=== PATIENT | female | born 1950 | race Caucasian/White ===

== ENCOUNTER 2024-10-14 20:36 | Observation (INO) ==
[2024-10-14 21:02] LABS: MEAN PLATELET VOLUME 7.6 fL (7.4-11.0); RED CELL DISTRIBUTION WIDTH 13.8 % (11.6-16.5)
[2024-10-14 21:10] LABS: INR 1.01 (0.8-1.3)
[2024-10-14 21:11] VITALS: BMI 19.8
[2024-10-14 21:16] LABS: CREATININE 0.76 mg/dL (0.55-1.02); eGFR NON BLACK RACES > 60 (>60)
--- NOTE | 2024-10-14 21:17 | EKG ---
Test Reason : cp Blood Pressure : */* mmHG Vent. Rate : 70 BPM Atrial Rate : 70 BPM P-R Int : 178 ms QRS Dur : 86 ms QT Int : 424 ms P-R-T Axes : 62 24 25 degrees QTc Int : 457 ms Normal sinus rhythm Possible Left atrial enlargement Borderline ECG When compared with ECG of 17-MAY-2024 19:23, No significant change was found Confirmed by Leonard Becker MD ([id number]) on 10/15/2024 7:19:49 AM Referred By: Confirmed By: Leonard Becker MD
--- NOTE | 2024-10-14 23:37 | DR.CP ---
HPI Time Seen Time Seen by Provider: 10/14/24 21:21 PCP Primary Care Physician: Dr. Watkins HPI Comment HPI Comment: Patient with extensive history of coronary artery disease including multiple stents and coronary bypass. Patient states she has had chest pains on and off for the last few months and has been following with her raw sampler. Patient states she had recent echo and due to ongoing concerns from the raw sampler they plan on doing a cath on the of this month. Patient states today she started having chest pain around 6:30 PM and she took her nitro at home which only resolved the pain for short period of time. Patient had aspirin and nitro in EMS transport and on arrival chest pain and shortness of breath have resolved. Complaint Chief Complaint:: Patient brought in er via [facility] with complaints of chest pain that started around 6:30 tonight, elevated bp, sob, and right arm pain. Pt states she took Nitro 0.4mg at home and symptoms was relieved. PT stated she called ems and pain resumed in route to our facility. pt was given 0.4mg nitro and ASA 325 by ems. Upon arrival to er pt denies chest pain or sob. Self Treatment fo Chief Complaint: Nitro 0.4mg po x2, ASA 324mg po, labetalol 20mg COVID-19 Coronavirus risk:travel/contact w/high risk person: No Has patient experienced Coronavirus symptoms: No Source History Provided: Patient Mode of Arrival Mode of Arrival: EMS Timing Onset of Chief Complaint: 10/14/24 PMH PMH Past Medical History: Yes Past Medical History: Anxiety, Coronary Artery Disease, Dyslipidemia, Hypertension and MD Past Medical History Comment: MD x4, CAD, Past Surgical History: Yes Surgical History: Appendectomy, CABG/Valve Surgery and Hysterectomy Past Surgical History Comment: CABG, Cardiac stents x4, Parathyroidectomy, Carotid endererectomy Family History History of Family Medical Conditions: Yes Family Medical History: Cancer Social History Does patient currently use any type of tobacco product: No Have you used tobacco products in the last 12 months: No Type of Tobacco Use: None Does any household member use tobacco: No Alcohol Use: None Do you use any recreational Drugs:: No Lives With: Family Lives Where: Home Travel Risk Coronavirus risk:travel/contact w/high risk person: No Has patient experienced Coronavirus symptoms: No Infectious screening Have you traveled outside the country in the last 6 months?: No Isolation: Standard ROS Review of Systems Constitutional: No Symptoms Reported Eyes: No Symptoms Reported ENTM: No Symptoms Reported Respiratoy: No Symptoms Reported Cardiovascular: See HPI and Chest Pain; negative Edema, Palpitations or Syncope Gastrointestinal/Abdominal: No Symptoms Reported Genitourinary: No Symptoms Reported Neurological: No Symptoms Reported Musculoskeletal: No Symptoms Reported Integumentary: No Symptoms Reported Hematologic/Lymphatic: No Symptoms Reported Endocrine: No Symptoms Reported Psychiatric: No Symptoms Reported All Other Systems: Reviewed and Negative PE Vitals Vitals: Vital Signs Temperature 98.0 F Pulse Rate 64 Pulse Rate 66 Pulse Rate 66 Pulse Rate 66 Pulse Rate 67 Pulse Rate 64 Pulse Rate 68 Pulse Rate 71 Pulse Rate 68 Pulse Rate 69 Pulse Rate 68 Pulse Rate 69 Pulse Rate 72 Respiratory Rate 14 Respiratory Rate 19 Respiratory Rate 14 Respiratory Rate 22 Respiratory Rate 24 Respiratory Rate 12 Respiratory Rate 15 Respiratory Rate 20 Respiratory Rate 15 Respiratory Rate 12 Respiratory Rate 24 Respiratory Rate 21 Respiratory Rate 20 Blood Pressure 158/69 Blood Pressure 166/70 Blood Pressure 177/72 Blood Pressure 170/73 Blood Pressure 189/83 Blood Pressure 189/83 Blood Pressure 189/83 O2 Sat by Pulse Oximetry 98 O2 Sat by Pulse Oximetry 98 O2 Sat by Pulse Oximetry 99 O2 Sat by Pulse Oximetry 99 O2 Sat by Pulse Oximetry 100 O2 Sat by Pulse Oximetry 98 O2 Sat by Pulse Oximetry 100 O2 Sat by Pulse Oximetry 99 O2 Sat by Pulse Oximetry 99 O2 Sat by Pulse Oximetry 99 O2 Sat by Pulse Oximetry 98 O2 Sat by Pulse Oximetry 98 O2 Sat by Pulse Oximetry 99 General Limitations: No Limitations General Appearance: Alert and In No Apparent Distress Head Head Exam: Normal Inspection Eyes Eye exam: Normal Appearance ENT ENT Exam: Normal Exam Chest Chest Inspection: Normal Inspection Respiratory Respiratory Exam: Normal Lung Sounds Bilat Cardiovascular Cardiovascular Exam: Tachycardia and Irregular Rhythm Pulse: Normal Edema: Normal Abdominal Exam Abdominal Exam: Normal Inspection, Normal Bowel Sounds and Soft Extremities Extremities Exam: Normal Inspection Back Back Exam: Normal Inspection Neurologic Neurological Exam: Alert and Oriented X3 Psychiatric Psychiatric Exam: Normal Affect and Normal Mood Skin Skin Exam: Warm, Dry, Intact and Normal Color COURSE Treatment Treatment: Discussed results of workup with patient. Pain is resolved. Consultation Called: 23:38 Consultation Comments: Discussed case with Dr. Rollins and he is agreeable to admission [facility]OR Labs Reviewed Laboratory Results Reviewed?: Yes 10/14/24 20:55 10/14/24 20:55 Laboratory: WBC 10.0 X10^3/uL (3.6-10.0) 10/14/24 20:55 RBC 4.17 X10^6/uL (3.5-5.4) 10/14/24 20:55 Hgb 12.6 g/dL (12.0-16.0) 10/14/24 20:55 Hct 37.6 % (36.0-47.0) 10/14/24 20:55 MCV 90.1 fL (80.0-100.0) 10/14/24 20:55 MCH 30.3 pg (27.0-34.0) 10/14/24 20:55 MCHC 33.6 g/dL (33.0-35.0) 10/14/24 20:55 RDW 13.8 % (11.6-16.5) 10/14/24 20:55 Plt Count 296 X10^3/uL (150.0-450.0) 10/14/24 20:55 MPV 7.6 fL (7.4-11.0) 10/14/24 20:55 Neut % (Auto) 61.2 % (42.0-75.0) 10/14/24 20:55 Lymph % (Auto) 24.7 % (21.0-51.0) 10/14/24 20:55 Petroleum % (Auto) 10.5 % (0.0-13.0) 10/14/24 20:55 Eos % (Auto) 3.3 % (0.9-2.9) H 10/14/24 20:55 Baso % (Auto) 0.3 % (0.2-1.0) 10/14/24 20:55 Neut # (Auto) 6.1 x10^3/uL (2.2-4.8) H 10/14/24 20:55 Lymph # (Auto) 2.5 X10^3/uL (1.3-2.9) 10/14/24 20:55 Petroleum # (Auto) 1.1 x10^3/uL (0.3-0.8) H 10/14/24 20:55 Eos # (Auto) 0.3 x10^3/uL (0.0-0.2) H 10/14/24 20:55 Baso # (Auto) 0.0 X10^3/uL (0.0-0.1) 10/14/24 20:55 Absolute Nucleated RBC 0.1 /100WBC 10/14/24 20:55 PT 13.4 SECONDS (11.8-14.3) 10/14/24 20:55 INR Target Range - 10/14/24 20:55 INR 1.01 (0.8-1.3) 10/14/24 20:55 APTT 27.8 SECONDS (22.9-36.5) 10/14/24 20:55 PTT Comment - 10/14/24 20:55 Sodium 145 mmol/L (136-145) 10/14/24 20:55 Corrected Sodium TNP 10/14/24 20:55 Potassium 3.3 mmol/L (3.5-5.1) L 10/14/24 20:55 Chloride 107 mmol/L (98-107) 10/14/24 20:55 Carbon Dioxide 29.0 mmol/L (21-32) 10/14/24 20:55 BUN 10 mg/dL (7-18) 10/14/24 20:55 Creatinine 0.76 mg/dL (0.55-1.02) 10/14/24 20:55 Est GFR (MDRD) Af Amer > 60 (>60) 10/14/24 20:55 Est GFR (MDRD) Non-Af > 60 (>60) 10/14/24 20:55 Glucose 104 mg/dL (65-99) H 10/14/24 20:55 Calcium 9.4 mg/dL (8.5-10.1) 10/14/24 20:55 Corrected Calcium TNP 10/14/24 20:55 Total Bilirubin 0.30 mg/dL (0.2-1.0) 10/14/24 20:55 AST 16 Units/L (15-37) 10/14/24 20:55 ALT 16 Units/L (12-78) 10/14/24 20:55 Alkaline Phosphatase 100 Units/L (46-116) 10/14/24 20:55 Creatine Kinase 52 Units/L (26-192) 10/14/24 20:55 Troponin I High Sens 11.5 ng/L (4.0-60.0) 10/14/24 23:07 Total Protein 7.3 g/dL (6.4-8.2) 10/14/24 20:55 Albumin 3.9 g/dL (3.4-5.0) 10/14/24 20:55 Globulin 3.4 g/dL (2.5-4.5) 10/14/24 20:55 Albumin/Globulin Ratio 1.1 Ratio (1.1-2.1) 10/14/24 20:55 XRAY XRAY Interpreted by: Self (Chest x-ray reviewed and interpreted by myself. No acute cardiopulmonary findings noted.) Opioid Opioid Risk Tool Age (Osmany box if 16-45): No History of Preadolescent Sexual Abuse: No Total: 0 Total Score Risk Category: Low Risk Copyright: Cast PATI predicting aberrant behaviors Discharge Plan Diagnosis Discharge Problem: Chest pain, Coronary artery disease Discharge Plan Patient Disposition: ADMITTED INPATIENT Condition: Stable Prescriptions: No Action carvedilol 6.25 mg tablet 6.25 mg PO BID isosorbide mononitrate 30 mg tablet extended release 24 hr 30 mg PO QDAY ranolazine 1,000 mg tablet extended release 12 hr 1,000 mg PO BID ticagrelor [Brilinta] 90 mg tablet 90 mg PO BID clonidine HCl 0.1 mg tablet 0.1 mg PO QDAY PRN losartan 25 mg tablet 12.5 mg PO QDAY aspirin 81 mg Tablet,Chewable 81 mg PO DAILY atorvastatin 20 mg Tablet 20 mg PO HS Health Concerns: Post Hospitalization: new medications and changes needed to prevent readmission or further decline. Pt educated and given instructions on all concerns. Plan of Treatment: Continue with present treatment and follow up plan. Pt is to keep follow up appointment as instructed and take medications as ordered. Orders to Discharge Patient Discharge Orders: Transfer (Routine); Ordered 10/14/24 Ordered By: Monty Keenan Follow ups/Referrals Follow ups/Referrals: [facility],None [Primary Care Provider] - 3 days Instructions Stand Alone Forms: Find Help Web Site, Post Hospital Follow Up Care Print Language: MALAYSIAN
[2024-10-15] MEDS: CATAPRES TAB 0.1 MG PO PRN (01:15)
--- NOTE | 2024-10-15 01:34 | EKG ---
Test Reason : Chest Pain Blood Pressure : */* mmHG Vent. Rate : 72 BPM Atrial Rate : 72 BPM P-R Int : 190 ms QRS Dur : 88 ms QT Int : 422 ms P-R-T Axes : 61 38 28 degrees QTc Int : 462 ms Normal sinus rhythm Possible Left atrial enlargement Borderline ECG When compared with ECG of 14-OCT-2024 21:16, (Unconfirmed) No significant change was found Confirmed by Leonard Becker MD ([id number]) on 10/15/2024 7:20:46 AM Referred By: Confirmed By: Leonard Becker MD
[2024-10-15 05:56] LABS: MEAN PLATELET VOLUME 7.9 fL (7.4-11.0); RED CELL DISTRIBUTION WIDTH 13.8 % (11.6-16.5)
--- NOTE | 2024-10-15 06:11 | RAD ---
EXAM: CHEST, 1 VIEW HISTORY: chest pain; COMPARISON: None FINDINGS: The cardiomediastinal silhouette is normal in size. No acute airspace disease. No pneumothorax or effusion. No acute osseous abnormality. IMPRESSION: No acute cardiopulmonary disease. THIS IS AN ELECTRONICALLY VERIFIED FINAL REPORT 10/15/2024 6:08 AM - Electronically signed by Maciel Flores MD
[2024-10-15 06:12] LABS: CHOL/HDL RATIO 2.3 (0.0-5.0); CREATININE 0.73 mg/dL (0.55-1.02); eGFR NON BLACK RACES > 60 (>60)
--- NOTE | 2024-10-15 07:07 | EKG ---
Test Reason : Chest pain Blood Pressure : */* mmHG Vent. Rate : 65 BPM Atrial Rate : 65 BPM P-R Int : 166 ms QRS Dur : 80 ms QT Int : 442 ms P-R-T Axes : 75 39 42 degrees QTc Int : 459 ms Normal sinus rhythm Normal ECG When compared with ECG of 15-OCT-2024 01:33, (Unconfirmed) No significant change was found Confirmed by Leonard Becker MD ([id number]) on 10/15/2024 7:20:41 AM Referred By: Confirmed By: Leonard Becker MD
[2024-10-15 07:43] VITALS: RESP 17
[2024-10-15] MEDS: COZAAR PO SCH (08:20)
[2024-10-15] MEDS: ASPIRIN 81 MG CHEWTAB PO SCH (08:20)
[2024-10-15] MEDS: RANEXA PO SCH (08:20)
[2024-10-15] MEDS: COREG TAB 6.25 MG PO SCH (08:20)
[2024-10-15] MEDS: IMDUR PO SCH (08:20)
[2024-10-15] MEDS: BRILINTA PO SCH (08:21)
[2024-10-15] MEDS ORDERED: PATIENT'S HOME MEDICATION (Losartan 25 mg tablet) PO SCH (09:00)
[2024-10-15] MEDS ORDERED: RANOLAZINE 1000 MG PO SCH (09:00)
[2024-10-15] MEDS ORDERED: PHARMACY CONSULT XX SCH (11:00)
[2024-10-15] MEDS: LOVENOX INJ 40 MG SYR SC SCH (12:25)
[2024-10-15 12:41] VITALS: BP 107/55; PULSE 65; TEMP 97.5; O2SAT 96
[2024-10-15] MEDS ORDERED: LIPITOR TAB 20 MG PO SCH (21:00)
== END 2024-10-15 14:05 | disposition home or self-care (01) ==
LOC: ER 20:36 → MED/SURG 20:36
PROVIDERS: ADMIT Obstetrics & Gynecology Obstetrics; ATTEND Obstetrics & Gynecology Obstetrics
DX: Z65.8 Other specified problems related to psychosocial circumstances; R00.0 Tachycardia, unspecified; I10 Essential (primary) hypertension; R06.02 Shortness of breath; M79.601 Pain in right arm; E78.5 Hyperlipidemia, unspecified; I25.810 Atherosclerosis of coronary artery bypass graft(s) without angina pectoris; R07.89 Other chest pain; Z95.2 Presence of prosthetic heart valve; F41.8 Other specified anxiety disorders; I25.2 Old myocardial infarction; Z58.89 Other problems related to physical environment; E87.6 Hypokalemia; Z66 Do not resuscitate